=== PATIENT | female | born 1980 | race Caucasian/White ===

== ENCOUNTER 2016-06-28 20:17 | Emergency (ER) | payer BC ==
[~2016-06-28] VITALS: Ht 165.1 cm; Wt 90.7 kg
[2016-06-28 21:20] VITALS: BP 143/67
[2016-06-28] MEDS ORDERED: LIDOCAINE 1% / SOD BICARB 8.4% 20 ML VIAL. IJ ONE (21:30)
--- NOTE | 2016-06-28 21:31 | PHYS DOC ---
Past Medical History Past Medical History: No Pertinent History Past Surgical History: Alcohol Use: None Drug Use: None Adult General Chief Complaint Chief Complaint: LACERATION/AVULSION HPI HPI Patient is a 36 year old female who presents with left eyebrow laceration, patient states her 3-year-old son jumped into the pool and hit her. Patient denies any loss of consciousness. Review of Systems Review of Systems Constitutional: Denies fever or chills [] Eyes: Denies change in visual acuity, redness, or eye pain [] Musculoskeletal: Denies back pain or joint pain [] Integument:left eyebrow laceration, Neurologic: Denies headache, focal weakness or sensory changes [] Endocrine: Denies polyuria or polydipsia [] Current Medications Current Medications Current Medications Medications (Trade) Dose Ordered Sig/Billie Start Time Stop Time Status Last Admin Dose Admin Lidocaine/Sodium Bicarbonate (Buffered Lidocaine 1%) 20 ml 1X ONCE 06/28/16 21:30 06/28/16 21:31 DC 06/28/16 21:35 20 ML Allergies Allergies Allergies Coded Allergies Type Severity Reaction Last Updated Verified No Known Drug Allergies 06/28/16 No Physical Exam Physical Exam Constitutional: Well developed, well nourished, no acute distress, non-toxic appearance. [] HENT: Normocephalic, atraumatic, bilateral external ears normal, oropharynx moist, no oral exudates, nose normal. [] Eyes: PERRLA, EOMI, conjunctiva normal, no discharge. [] Skin: Left eyebrow with a laceration approximately 2 cm long. Back: No tenderness, no CVA tenderness. [] Extremities: No tenderness, no cyanosis, no clubbing, ROM intact, no edema. [] Neurologic: Alert and oriented X 3, normal motor function, normal sensory function, no focal deficits noted. [] Psychologic: Affect normal, judgement normal, mood normal. [] Current Patient Data Vital Signs Vital Signs Date Time Temp Pulse Resp B/P Pulse Ox O2 Delivery O2 Flow Rate FiO2 06/28/16 21:20 98.2 96 18 99 Room Air 98.2 EKG EKG [] Radiology/Procedures Radiology/Procedures Indication: Left eyebrow laceration Procedure: The patient was placed in the appropriate position and anesthesia around the laceration was 1% buffered lidocaine. The area was then cleaned with 10 ML of normal saline and Betadine. The laceration was closed with 5 interrupted sutures using 6 .0 Prolene and covered with a Band-Aid. The wound area was then dressed with [WOUND COVERING]. Total repaired wound length: Approximately 2 cm Other Items: None The patient tolerated the procedure well Complications: None Course & Med Decision Making Course & Med Decision Making Pertinent Labs and Imaging studies reviewed. (See chart for details) Patient is in the ED with left eyebrow laceration, tetanus is up-to-date. Laceration was closed as noted in procedures. She was provided wound care instructions as well as return precautions. Dragon Disclaimer Dragon Disclaimer This electronic medical record was generated, in whole or in part, using a voice recognition dictation system. Departure Departure Impression: Primary Impression: Laceration of eyebrow, left Disposition: 01 HOME, SELF-CARE Condition: STABLE Referrals: NO PCP (PCP) Follow-up with your primary care doctor in 5 days for suture removal Patient Instructions: Facial Laceration Additional Instructions: You have a laceration on the left eyebrow, keep it clean and dry. Monitor is for signs and symptoms of infection including increased redness warmth or odor drainage from the are and return to the ED if they occur. Follow-up with your doctor or the emergency room in 5 days for suture removal. Problem Qualifiers Primary Impression: Laceration of eyebrow, left Encounter type: initial encounter Qualified Code: S01.112A - Laceration without foreign body of left eyelid and periocular area, initial encounter IVANIA NEGRETE APRN Jun 28, 2016 21:31
[2016-06-28] MEDS ORDERED: IBUPROFEN 800 MG TABLET. PO ONE (22:00)
== END 2016-06-28 21:59 | disposition home or self-care (01) ==
LOC: ER 20:17
DX: S01.112A Laceration without foreign body of left eyelid and periocular area, initial encounter (principal); W22.8XXA Striking against or struck by other objects, initial encounter; Y93.39 Activity, other involving climbing, rappelling and jumping off; Y99.8 Other external cause status; Y92.34 Swimming pool (public) as the place of occurrence of the external cause
CPT/HCPCS: 12011; 99283-25